=== PATIENT | female | born 1985 | race African-American/Black ===

== ENCOUNTER 2017-11-11 17:45 | Emergency (ER) | payer OTHER ==
[~2017-11-11] VITALS: Ht 157.5 cm; Wt 77.1 kg
--- NOTE | 2017-11-11 18:24 | ED UPPER/LOWER EXTREMITY COMPL ---
History of Present Illness General Chief Complaint: Upper Extremity Problem Stated Complaint: R ARM PAIN Source: patient Exam Limitations: no limitations Vital Signs & Intake/Output Vital Signs & Intake/Output Vital Signs Date Time Temp Pulse Resp B/P B/P Pulse O2 O2 Flow FiO2 Mean Ox Delivery Rate 11/11 1827 98.3 99 18 138/88 97 Room Air Allergies Coded Allergies: No Known Allergies (11/11/17) Reconcile Medications Methocarbamol (Robaxin) 500 MG TABLET 1 TAB PO TID PRN MUSCLE STRAIN Prednisone 20 MG TABLET 2 TAB PO DAILY SHOULDER STRAIN Triage Nurses Notes Reviewed? yes Onset: Gradual Duration: week(s): (4) Timing: no prior history Severity: moderate Severity Numbers: 8 Pain/Injury Location: Right: Shoulder. Method of Injury: unknown Modifying Factors: Improves With: immobilization. Associated Symptoms: stiffness HPI: Patient is a 32-year-old female presenting to the emergency department with chief complaint of right shoulder pain, right arm pain has been constant for the past 1 month progressively getting worse. She reports that prior to onset of pain she was doing a lot of heavy lifting. No specific injury. Pain occasionally radiates down the right arm. Denies numbness or tingling. Denies any weakness in the right upper extremity. She was seen in a walk-in clinic a couple weeks ago and diagnosed with a shoulder strain. Put on naproxen and Flexeril with little relief. Pain continues. Pain worse with movement. Patient reports pain is currently moderate achy and throbbing. Last dose of medication to help with pain was 3 days ago. (Corrie Conte) Past History Travel History Traveled to [place] past 21 day No Medical History Any Pertinent Medical History? see below for history Surgical History Surgical History: non-contributory Psychosocial History What is your primary language Tajik Family History Hx Contributory? No (Corrie Conte) Review of Systems Review of Systems Constitutional: Reports: no symptoms. Comments Review of systems: See HPI, All other systems negative. Constitutional, no chills fever or weight loss HEENT: No visual changes no sore throat no congestion Cardiovascular: No chest pain ,palpitation Skin, no jaundice no rashes Respiratory: No dyspnea cough sputum or hemoptysis GI: No nausea no vomiting Muscle skeletal: no back pain, no neck pain, Neurologic: No numbness Immunology: No splenectomy or history of AIDS (Vlad MEDRANO,Corrie) Physical Exam Physical Exam General Appearance: well developed/nourished, no apparent distress, alert, awake , comfortable Comments: Well-developed well-nourished person in no acute distress HEENT: Pupils equally round and reactive to light and accommodation. Nose is atraumatic. Neck: Normal inspection Back: Nontender Cardiovascular: Regular rate and rhythms no murmurs rubs or gallops, normal JVP Respiratory: No respiratory distress.breath sounds clear to auscultation bilaterally Extremity: No edema, tender to palpation over the right bicep tendon, limited range of motion of right shoulder secondary to pain. Edge Sander strength is equal and symmetric bilaterally. Full range of motion of right wrist, right elbow. Neuro: Alert oriented x3, motor sensory normal Skin: No appreciable rash on exposed skin, skin is warm and dry. Psych: Mood and affect is normal, memory and judgment is normal. (Vlad MEDRANO,Corrie) Progress Differential Diagnosis: contusion, dislocation, fracture, sprain, tendon injury Plan of Care: Orders Procedure Date/time Status Durable Medical Equipment 11/11 1828 Active URINE 11/11 1826 Complete Laboratory Tests 11/11/17 1850: Urine Test NEGATIVE Diagnostic Imaging: Viewed by Me: Radiology Read. Discussed w/RAD: Radiology Read. Radiology Impression: PATIENT: ROYA WILLARD PRESENT AGE: 32 PATIENT ACCOUNT NO: [id number] : 86 LOCATION: [facility] ORDERING PHYSICIAN: Corrie MEDRANO SERVICE DATE: 11/11/17 EXAM TYPE: RAD - XRY-SHOULDER COMPLETE-RIGHT EXAMINATION: XR SHOULDER, RIGHT CLINICAL INFORMATION: Pain after lifting. COMPARISON: None TECHNIQUE: AP external rotation, Grashey, scapular Y, and axillary views of the right shoulder. FINDINGS: No acute fracture or dislocation is seen. The glenohumeral and AC joints are normal. No degenerative changes are evident. The soft tissues are unremarkable. The imaged right lung is clear. IMPRESSION: Normal right shoulder. DICTATED BY: Lamberto Caraballo MD DATE/TIME DICTATED:11/11/171934 SIGNAL TESTER:THUAN DATE/TIME TRANSCRIBED:11/11/171934 CONFIDENTIAL, DO NOT COPY WITHOUT APPROPRIATE AUTHORIZATION. <Electronically signed in Other Vendor System> SIGNED BY: Lamberto Caraballo MD 11/11/171939 (Corrie Conte) Departure Departure Time of Disposition: 1944 Disposition: HOME OR SELF CARE Condition: Stable Clinical Impression Primary Impression: Shoulder sprain Qualifiers: Encounter type: initial encounter Shoulder sprain type: unspecified sprain Laterality: right Qualified Code: S43.401A - Unspecified sprain of right shoulder joint, initial encounter Referrals: Sera GARBER,Kian Grady MD,Hugo Hyman Additional Instructions: FOLLOW UP WITH ORTHOPEDIC IN THE NEXT 5-7 DAYS. RETURN FOR WORSENING SYMPTOMS OR CONCERNS. TAKE PREDNISONE PRESCRIBED. TAKE ROBAXIN PRESCRIBED. WEAR SLING FOR SUPPORT. Departure Forms: Customer Survey General Discharge Information Prescriptions: Current Visit Scripts Methocarbamol (Robaxin) 1 TAB PO TID PRN MUSCLE STRAIN #20 TAB Prednisone 2 TAB PO DAILY #10 TAB (Corrie Conte) PA/MANUFACTURING PRODUCTION MANAGER Co-Sign Statement Statement: ED Attending supervision documentation- I saw and evaluated the patient. I have also reviewed all the pertinent lab results and diagnostic results. I agree with the findings and the plan of care as documented in the PA's/MANUFACTURING PRODUCTION MANAGER's documentation. x I have reviewed the ED Record and agree with the PA's/MANUFACTURING PRODUCTION MANAGER's documentation. [] Additions or exceptions (if any) to the PAs/MANUFACTURING PRODUCTION MANAGER's note and plan are summarized below: [] (Heath GARBER,Andrae) Procedures Splinting Location: RIGHT SHOULDER Manual Alignment Performed: No Pre-Made Type: velcro Splint: SPLINT Splint Applied By: splint applied by other (NURSING) Pre-Proc Neuro Vasc Exam: normal Post-Proc Neuro Vasc Exam: normal Progress: TOELRATED WELL (Corrie Conte)
[2017-11-11 18:27] VITALS: BP 138/88
--- NOTE | 2017-11-11 19:40 | RADIOLOGY REPORT ---
EXAMINATION: XR SHOULDER, RIGHT CLINICAL INFORMATION: Pain after lifting. COMPARISON: None TECHNIQUE: AP external rotation, Grashey, scapular Y, and axillary views of the right shoulder. FINDINGS: No acute fracture or dislocation is seen. The glenohumeral and AC joints are normal. No degenerative changes are evident. The soft tissues are unremarkable. The imaged right lung is clear. IMPRESSION: Normal right shoulder.
[2017-11-11] MEDS ORDERED: PREDNISONE20 M1 PO (19:51)
[2017-11-11] MEDS ORDERED: ROBAXIN500 M1 PO (19:51)
== END 2017-11-11 20:07 ==
LOC: ERH 17:45
DX: S43.401A Unspecified sprain of right shoulder joint, initial encounter (principal); X58.XXXA Exposure to other specified factors, initial encounter; Y92.9 Unspecified place or not applicable; Y93.9 Activity, unspecified
CPT/HCPCS: 73030-RT; 81025; 96372; J1885